=== PATIENT | male | born 1990 | race Caucasian/White ===

== ENCOUNTER 2016-08-16 21:01 | Emergency (ER) | payer BC, OTHER ==
[~2016-08-16] VITALS: Ht 175.3 cm; Wt 72.0 kg
[2016-08-16 21:05] VITALS: BP 117/83; PULSE 118; RESP 16; TEMP 97; O2SAT 97
[2016-08-16 21:07] VITALS: PULSE 107; RESP 18; O2SAT 97
[2016-08-16 21:17] VITALS: PULSE 103; RESP 18; O2SAT 97
[2016-08-16] MEDS ORDERED: BENA25CA4 (22:09)
[2016-08-16] MEDS ORDERED: MELA1TAB22 (22:09)
[2016-08-16] MEDS ORDERED: REGLAN (22:09)
[2016-08-16] MEDS ORDERED: BENZTROPINE MESYLATE 2 MG/2 ML VIAL IV PUSH ONE (22:15)
[2016-08-16] MEDS ORDERED: SODIUM CHLOR 0.9% 1000 ML INJ 1,000 ML IV SCH (22:15)
[2016-08-16] MEDS ORDERED: LORazepam 2 MG/ML VIAL IV PUSH ONE (22:15)
[2016-08-16] MEDS ORDERED: ONDANSETRON HCL 4 MG/2 ML VIAL ONE (23:07)
[2016-08-16] MEDS ORDERED: ONDANSETRON HCL 4 MG/2 ML VIAL IV ONE (23:15)
[2016-08-16] MEDS ORDERED: MORPHINE SULFATE 4 MG/ML INJ IV PUSH ONE (23:45)
[2016-08-16 23:55] VITALS: RESP 18
[2016-08-17] MEDS ORDERED: BENZ1TAB PO (00:27)
--- NOTE | 2016-08-17 00:27 | PD ---
HPI Chief Complaint: Headache Time Seen by Provider: 21:48 Travel History International Travel<30 days: No Contact w/Intl Traveler<30days: No Traveled to known affect area: No History of Present Illness HPI This is a 26-year-old male who has a history of chronic migraines who presents to the emergency department having been in [place] several days ago and received treatment for his migraines including Reglan, Haldol and Benadryl. He says ever since then he hasn't been able to sleep, his headaches have been getting worse and he is getting a lot of neck stiffness. It's been 3 days since she's been able to sleep. He reports his headache is constant, bandlike around his head, moderate severity associated with nausea. His headache is typical of headaches she's had in the past. He's been taking Reglan and he applied a neurostimulator that he has at home. PFSH Past Medical History Medical other: Yes (CONGENITAL RENAL HYPERPLASIA ) Migraines: Yes Influenza Vaccination: No Social History Alcohol Use: No Tobacco Use: No Substance Use: No Allergies-Medications (Allergen,Severity, Reaction): Coded Allergies: Compazine (Verified Allergy, Intermediate, APHASIA, 08/16/16) Nonsteroidal Anti-Inflammatory Agts (Verified Allergy, Unknown, 08/16/16) Reported Meds & Prescriptions Reported Meds & Active Scripts Active Reported Melatonin 5 Mg Tab 6 Mg Benadryl Allergy (Diphenhydramine HCl) 25 Mg Cap [Reglan] Review of Systems Except as stated in HPI: all other systems reviewed are Neg Physical Exam Narrative GENERAL:Well appearing, no acute distress SKIN: Warm and dry. HEAD: Atraumatic. Normocephalic. EYES: Pupils equal and round. No injection or drainage. ENT: Moist mucous membranes NECK: Trachea midline. CARDIOVASCULAR: Regular rate and rhythm. No murmur appreciated. RESPIRATORY: Clear to auscultation. Breath sounds equal bilaterally. GASTROINTESTINAL: Abdomen soft, non-tender, nondistended. MUSCULOSKELETAL: No obvious deformities. NEUROLOGICAL: Awake and alert. No obvious cranial nerve deficits. No dysarthria or aphasia. 5 out of strength in the bilateral upper and lower extremities. PSYCHIATRIC: Appropriate mood and affect; insight and judgment normal. Data Data Last Documented VS Vital Signs Date Time Temp Pulse Resp B/P Pulse Ox O2 Delivery O2 Flow Rate FiO2 08/16/16 23:55 18 08/16/16 21:17 103 97 08/16/16 21:05 97.0 117/83 Room Air Orders Sodium Chlor 0.9% 1000 Ml Inj (Ns 1000 M (08/16/16 22:15) Benztropine Inj (Cogentin Inj) (08/16/16 22:15) Lorazepam Inj (Ativan Inj) (08/16/16 22:15) Ondansetron Inj (Zofran Inj) (08/16/16 23:15) Ondansetron Inj (Zofran Inj) (08/16/16 23:07) Morphine Inj (Morphine Inj) (08/16/16 23:45) MDM Medical Decision Making Medical Screen Exam Complete: Yes Emergency Medical Condition: Yes Interpretation(s) Afebrile, tachycardic, normotensive Differential Diagnosis Migraine headache, extrapyramidal side effects, subarachnoid hemorrhage, meningitis Narrative Course This is a 26-year-old male who presents to the emergency department with neck stiffness, some involuntary movements, difficulty sleeping and headache. I suspect his symptoms are due to extrapyramidal side effects from all the medications as at the outside hospital he received Haldol and Reglan and he's been continuing to take Reglan consistently for the last several days. He was given benztropine, Ativan and some morphine and he feels much better and his symptoms have resolved. Patient was discharged home with standing benztropine and instructed to take Tylenol for his headache. Diagnosis Primary Impression: Extrapyramidal reaction Patient Instructions: General Instructions Additional Instructions: If you develop severe worsening headache, persistent vomiting, numbness, weakness, difficulty walking or difficulty talking return to the emergency department immediately. Sometimes in the emergency department we did not identify the cause of headaches. If you continued to have headaches it is very important that he followup with her primary care physician as you may need further testing with an MRI. Med/Other Pt SpecificInfo: Prescription(s) given Scripts Benztropine 1 Mg Tab1 Mg PO BID 7 Days Ref 0 Prov:Olivia Diaz MD 08/17/16 Disposition: 01 DISCHARGE HOME Condition: Stable Olivia Diaz MD Aug 17, 2016 00:27
== END 2016-08-17 00:43 | disposition home or self-care (01) ==
LOC: NEPE 21:01
DX: G43.909 Migraine, unspecified, not intractable, without status migrainosus (principal)
CPT/HCPCS: 96361; 96374; 96375; 99283; J0515; J2060; J2270; J2405; J7030